=== PATIENT | male | born 1970 | race African-American/Black ===

== ENCOUNTER 2020-01-22 00:05 | Inpatient (IN) | payer MEDICAID, OTHER ==
[~2020-01-22] VITALS: Ht 182.9 cm; Wt 73.5 kg
[2020-01-22] MEDS ORDERED: HYDROCODONE/ACETAMINOPHEN 5/325MG TABLET PO STA (00:45)
[2020-01-22 01:42] LABS: BASOPHILS % 0.4 % (0.0-2.0); EOSINOPHILS % 0.3 % (0.0-5.0); HEMATOCRIT. 34.8 % (42.0-52.0); HEMOGLOBIN. 10.9 g/dL (14.0-18.0); LYMPHOCYTES % 28.1 % (20.0-50.0); MEAN CORPUSCULAR HEMOGLOBIN 24.6 pg (28.0-32.0); MEAN CORPUSCULAR VOLUME 78.6 fL (80.0-94.0); MEAN PLATELET VOLUME 8.3 fl (7.4-10.4); MONOCYTES % 7.9 % (2.0-8.0); NEUTROPHILS % 63.3 % (40.0-76.0); PLATELET 468 x1000/uL (130-400); RED BLOOD CELL COUNT 4.43 mill/uL (4.7-6.1); RED CELL DISTRIBUTION WIDTH 21.3 % (11.6-14.6)
[2020-01-22 01:45] LABS: CHLORIDE 108 mEq/L (98-107)
[2020-01-22] MEDS ORDERED: AZITHROMYCIN 500 MG in DEXT 5% WATER 250 ML IV NR (03:00)
[2020-01-22] MEDS ORDERED: CEFTRIAXONE 2 G PREMIX 50 ML IV NR (03:00)
[2020-01-22 03:20] LABS: INR 1.6; PROTHROMBIN TIME 16.8 sec (9.6-11.0)
[2020-01-22] MEDS: MORPHINE SULFATE 2 MG/ML CPJ (NOT FOR IM USE) IV PRN ×4 (08:16→22:42)
[2020-01-22 10:42] VITALS: BP_SYST 110; BP_SYST 139; BP_DIAS 87
[2020-01-22] MEDS ORDERED: FUROSEMIDE 40MG/4ML VIAL IVP SCH (11:15)
[2020-01-22 12:00] VITALS: BP 135/93
[2020-01-22] MEDS ORDERED: ONDANSETRON HCL 4MG/2ML INJ IV PRN (12:15)
[2020-01-22] MEDS ORDERED: ACETAMINOPHEN 325MG TABLET PO PRN (12:15)
[2020-01-22] MEDS: LISINOPRIL 2.5MG TABLET PO SCH (13:12)
[2020-01-22] MEDS: CARVEDILOL 3.125 MG TABLET PO SCH ×2 (13:12→22:41)
[2020-01-22] MEDS: ENOXAPARIN 40MG/0.4ML SYR SUBCUT SCH (13:15)
[2020-01-22 16:00] VITALS: BP 130/100
[2020-01-22] MEDS: FUROSEMIDE 40MG/4ML VIAL IVP SCH (16:53)
[2020-01-22 20:00] VITALS: BP 135/97
[2020-01-22 23:42] LABS: CLARITY URINE CLEAR (CLEAR); COLOR URINE YELLOW (YELLOW); KETONES URINE NEGATIVE (NEGATIVE); LEUKOCYTE ESTERASE URINE NEGATIVE (NEGATIVE); NITRITE URINE NEGATIVE (NEGATIVE); OCCULT BLOOD URINE NEGATIVE (NEGATIVE); PROTEIN URINE NEGATIVE (NEGATIVE); SPECIFIC GRAVITY URINE 1.012 (1.005-1.030); UROBILINOGEN URINE 0.2 E.U./dL (0.2-1.0)
[2020-01-23] VITALS: BP 123/94
[2020-01-23 00:06] LABS: *AMPHETAMINES SCREEN URINE NEGATIVE (NEGATIVE); *BARBITURATES SCREEN URINE NEGATIVE (NEGATIVE); *BENZODIAZEPINES SCREEN URINE NEGATIVE (NEGATIVE); *COCAINE SCREEN URINE PRESUMTIVE POSITIVE (NEGATIVE); CANNABINOID URINE SCREEN NEGATIVE (NEGATIVE); METHADONE URINE SCREEN NEGATIVE (NEGATIVE); OPIATES URINE SCREEN PRESUMTIVE POSITIVE (NEGATIVE); PHENCYCLIDINE URINE SCREEN NEGATIVE (NEGATIVE)
[2020-01-23 04:00] VITALS: BP 127/93
[2020-01-23] MEDS: AZITHROMYCIN 500 MG in DEXT 5% WATER 250 ML IV SCH (06:47)
[2020-01-23] MEDS: MORPHINE SULFATE 2 MG/ML CPJ (NOT FOR IM USE) IV PRN ×4 (07:02→23:53)
[2020-01-23 07:22] LABS: HEMATOCRIT. 29.6 % (42.0-52.0); HEMOGLOBIN. 9.4 g/dL (14.0-18.0); MEAN CORPUSCULAR HEMOGLOBIN 24.5 pg (28.0-32.0); MEAN CORPUSCULAR VOLUME 76.7 fL (80.0-94.0); PLATELET 373 x1000/uL (130-400); RED BLOOD CELL COUNT 3.85 mill/uL (4.7-6.1); RED CELL DISTRIBUTION WIDTH 21.3 % (11.6-14.6)
[2020-01-23 08:00] VITALS: BP 124/93
[2020-01-23 08:10] LABS: HEPATITIS B SURFACE ANTIGEN NEGATIVE
[2020-01-23] MEDS: CEFTRIAXONE 1,000 MG in DEXTROSE 5% WATER 50 ML IV SCH (08:27)
[2020-01-23 08:40] LABS: HEPATITIS A AB IGM NEGATIVE (NEGATIVE)
[2020-01-23] MEDS: FUROSEMIDE 40MG/4ML VIAL IVP SCH ×2 (10:07→18:00)
[2020-01-23] MEDS: ENOXAPARIN 40MG/0.4ML SYR SUBCUT SCH (10:07)
[2020-01-23] MEDS: LISINOPRIL 2.5MG TABLET PO SCH (10:07)
[2020-01-23] MEDS: CARVEDILOL 3.125 MG TABLET PO SCH ×2 (10:07→21:23)
[2020-01-23 10:49] LABS: NUCLEATED RED BLOOD CELLS 3 /100 WBC; PLATELET ESTIMATE NORMAL
[2020-01-23 12:00] VITALS: BP 120/82
[2020-01-23 16:00] VITALS: BP 116/72
[2020-01-23 20:00] VITALS: BP 125/92
[2020-01-24] VITALS: BP 118/88
[2020-01-24 04:00] VITALS: BP 110/76
[2020-01-24] MEDS: AZITHROMYCIN 500 MG in DEXT 5% WATER 250 ML IV SCH (06:41)
[2020-01-24 06:47] LABS: HEMATOCRIT. 31.2 % (42.0-52.0); HEMOGLOBIN. 9.8 g/dL (14.0-18.0); MEAN CORPUSCULAR HEMOGLOBIN 24.2 pg (28.0-32.0); PLATELET 396 x1000/uL (130-400); RED BLOOD CELL COUNT 4.05 mill/uL (4.7-6.1); RED CELL DISTRIBUTION WIDTH 20.9 % (11.6-14.6)
[2020-01-24 08:00] VITALS: BP 100/75
[2020-01-24] MEDS: CARVEDILOL 3.125 MG TABLET PO SCH ×2 (08:36→20:41)
[2020-01-24] MEDS: LISINOPRIL 2.5MG TABLET PO SCH (08:37)
[2020-01-24] MEDS: ENOXAPARIN 40MG/0.4ML SYR SUBCUT SCH (09:02)
[2020-01-24] MEDS: FUROSEMIDE 40MG/4ML VIAL IVP SCH ×2 (09:02→17:17)
[2020-01-24 09:09] LABS: % CD 3 POS. LYMPHOCYTES 50.6 % (57.5-86.2); % CD 4 POS. LYMPHOCYTES 23.2 % (30.8-58.5); % CD 8 POS. LYMPH 27.1 % (12.0-35.5); ABSOLUTE CD 3 152 /uL (622-2402); ABSOLUTE CD 4 HELPER 70 /uL (359-1519); ABSOLUTE CD 8 SUPPRESSOR 81 /uL (109-897); ABSOLUTE LYMPHOCYTES 0.3 x10E3/uL (0.7-3.1); ABSOLUTE MONOCYTES 0.5 x10E3/uL (0.1-0.9); ABSOLUTE NEUTROPHILS 2.5 x10E3/uL (1.4-7.0); BASOPHILS 0 % (Not Estab.); CD4/CD8 RATIO 0.86 (0.92-3.72); HEMATOCRIT 34.9 % (37.5-51.0); HEMOGLOBIN 9.9 g/dL (13.0-17.7); IMMATURE GRANULOCYTES 0 % (Not Estab.); LYMPHOCYTES 10 % (Not Estab.); MEAN CORPUSCULAR HEMOGLOBIN 23.5 pg (26.6-33.0); MEAN CORPUSCULAR HGB CONC. 28.4 g/dL (31.5-35.7); MEAN CORPUSCULAR VOLUME 83 fL (79-97); MONOCYTES 14 % (Not Estab.); NEUTROPHILS 75 % (Not Estab.); NUCLEATED RBC 1 % (0 - 0); PLATELETS 481 x10E3/uL (150-450); RBC 4.21 x10E6/uL (4.14-5.80); RED CELL DISTRIBUTION WIDTH 18.1 % (11.6-15.4); WBC 3.4 x10E3/uL (3.4-10.8)
[2020-01-24 09:41] LABS: NUCLEATED RED BLOOD CELLS 1 /100 WBC; PLATELET ESTIMATE NORMAL
[2020-01-24] MEDS: CEFTRIAXONE 1,000 MG in DEXTROSE 5% WATER 50 ML IV SCH (10:00)
[2020-01-24 12:00] VITALS: BP 109/75
[2020-01-24 16:00] VITALS: BP 122/89
[2020-01-24] MEDS: HYDROCODONE/ACETAMINOPHEN 5/325MG TABLET PO PRN ×2 (16:22→21:44)
[2020-01-24 20:00] VITALS: BP 116/91
[2020-01-25] VITALS: BP 122/89
[2020-01-25 04:00] VITALS: BP 111/81
[2020-01-25] MEDS: AZITHROMYCIN 500 MG in DEXT 5% WATER 250 ML IV SCH (05:30)
[2020-01-25 06:32] LABS: HEMATOCRIT. 31.3 % (42.0-52.0); HEMOGLOBIN. 9.9 g/dL (14.0-18.0); MEAN CORPUSCULAR HEMOGLOBIN 24.1 pg (28.0-32.0); MEAN CORPUSCULAR VOLUME 76.5 fL (80.0-94.0); PLATELET 368 x1000/uL (130-400); RED BLOOD CELL COUNT 4.09 mill/uL (4.7-6.1); RED CELL DISTRIBUTION WIDTH 20.9 % (11.6-14.6)
[2020-01-25] MEDS ORDERED: ATOVAQUONE 750MG/5ML PACKET PO SCH (07:15)
[2020-01-25 08:00] VITALS: BP 94/72
[2020-01-25 08:09] LABS: HIV 1 ABS Positive (Negative); HIV 2 ABS Indeterminate (Negative); HIV SCREEN 4G Reactive (Non Reactive); INTERPRETATION HIV-1 Positive (.)
[2020-01-25] MEDS: CEFTRIAXONE 1,000 MG in DEXTROSE 5% WATER 50 ML IV SCH (08:14)
[2020-01-25] MEDS: ENOXAPARIN 40MG/0.4ML SYR SUBCUT SCH (08:15)
[2020-01-25] MEDS: MORPHINE SULFATE 2 MG/ML CPJ (NOT FOR IM USE) IV PRN (08:16)
[2020-01-25] MEDS: CARVEDILOL 3.125 MG TABLET PO SCH (09:00)
[2020-01-25] MEDS: LISINOPRIL 2.5MG TABLET PO SCH (09:00)
[2020-01-25] MEDS: FUROSEMIDE 40MG/4ML VIAL IVP SCH (11:08)
[2020-01-25] MEDS ORDERED: ASPIRIN 81MG EC TABLET PO SCH (11:45)
[2020-01-25 12:00] VITALS: BP 117/84
[2020-01-25 13:44] VITALS: BP 117/84
[2020-01-26 07:51] LABS: NUCLEATED RED BLOOD CELLS 5 /100 WBC; PLATELET ESTIMATE NORMAL
== END 2020-01-25 17:19 | disposition home or self-care (01) | DRG 190 ==
LOC: ER 00:05 → 7WST 03:17 → EDBEDREQ 03:20 → EDBEDREQTM 03:20 → ENRESERV 07:53 → 5WST 01-23 14:20
PROVIDERS: ADMIT Internal Medicine; ATTEND Internal Medicine
DX: I21.4 Non-ST elevation (NSTEMI) myocardial infarction (principal); I13.0 Hypertensive heart and chronic kidney disease with heart failure and stage 1 through stage 4 chronic kidney disease, or unspecified chronic kidney disease; N17.9 Acute kidney failure, unspecified; E43 Unspecified severe protein-calorie malnutrition; J18.1 Lobar pneumonia, unspecified organism; B20 Human immunodeficiency virus [HIV] disease; D64.9 Anemia, unspecified; M54.9 Dorsalgia, unspecified; R74.0 Nonspecific elevation of levels of transaminase and lactic acid dehydrogenase [LDH]; I25.10 Atherosclerotic heart disease of native coronary artery without angina pectoris; I44.4 Left anterior fascicular block; R06.03 Acute respiratory distress; D72.819 Decreased white blood cell count, unspecified; I50.9 Heart failure, unspecified; N18.9 Chronic kidney disease, unspecified; J44.9 Chronic obstructive pulmonary disease, unspecified; Z95.1 Presence of aortocoronary bypass graft; Z82.49 Family history of ischemic heart disease and other diseases of the circulatory system; Z87.891 Personal history of nicotine dependence; Z68.22 Body mass index [BMI] 22.0-22.9, adult; Z03.818 Encounter for observation for suspected exposure to other biological agents ruled out; Z79.899 Other long term (current) drug therapy
CPT/HCPCS: 36415; 71045; 80048; 80053; 80061; 80305; 81003; 83735; 83880; 84484; 85025; 86359; 86360; 86701; 86702; 86703; 86705; 86709; 86803; 87340; 87389; 87635; 93005; 93306; 93970; 97162; 97166; 99285; J0456; J0696; J1650; J1940; J2270; J7060